=== PATIENT | female | born 1965 | race Caucasian/White ===

== ENCOUNTER 2023-01-22 09:45 | Emergency (ER) | payer BC ==
[2023-01-22] MEDS ORDERED: Ibuprofen 200 MG TAB ONE (12:07)
[2023-01-22] MEDS ORDERED: HYDROcodone/Acetaminophen 10/325 mg Tablet ONE (12:07)
== END 2023-01-22 13:24 | disposition home or self-care (01) ==
LOC: CSHERS 09:45
DX: S82.002A Unspecified fracture of left patella, initial encounter for closed fracture (principal); W17.89XA Other fall from one level to another, initial encounter